=== PATIENT | male | born 1965 | race Caucasian/White ===

== ENCOUNTER 2024-06-01 07:45 | Outpatient (CLI) | payer OTHER, SELFPAY ==
--- NOTE | ~2024-06-01 | US_ITS ---
Limited Abdominal Sonogram: Real-time sonographic imaging of the right upper quadrant was performed. Clinical History: Fatty liver Findings: The liver appears echogenic, with no evidence of mass lesion or bile duct dilatation. Main portal vein demonstrates normal direction of flow. The gallbladder is well distended, and appears no rmal with no evidence of gallstone or wall thickening. The common bile duct measures 3 mm. The visua lized pancreas, aorta, and IVC are unremarkable. Right kidney measures 11.5 cm in length, unremarkabl e appearance. Impression: Diffuse fatty infiltration of the liver. Reviewed, dictated and finalized at location M. [employer]PER[employer] Impression: Diffuse fatty infiltration of the liver.
== END 2024-06-01 07:46 | disposition home or self-care (01) ==
LOC: MICIMG 07:47
PROVIDERS: PCP Chiropractor; Visit Provider Chiropractor
DX: K76.0 Fatty (change of) liver, not elsewhere classified (principal)
CPT/HCPCS: 76705